=== PATIENT | male | born 1970 | race Caucasian/White ===

== ENCOUNTER 2022-06-27 12:28 | Emergency (ER) | payer BC ==
[~2022-06-27] VITALS: Ht 182.9 cm; Wt 98.8 kg
[2022-06-27] VITALS (13 sets, daily range): BP systolic 101–163; BP diastolic 65–101
[2022-06-27] MEDS ORDERED: PREDNISONE20 MG PO (13:28)
[2022-06-27] MEDS ORDERED: BENADRYL 25MG C25 MG PO (13:28)
== END 2022-06-27 13:41 | disposition left against medical advice (07) | DRG 916 ==
LOC: ED 12:28
DX: T78.3XXA Angioneurotic edema, initial encounter (principal); T63.481A Toxic effect of venom of other arthropod, accidental (unintentional), initial encounter; R22.0 Localized swelling, mass and lump, head; Y92.219 Unspecified school as the place of occurrence of the external cause